=== PATIENT | female | born 1935 ===

== ENCOUNTER 2023-01-09 02:42 | Inpatient (IN) | payer BC ==
[~2023-01-09] VITALS: Ht 160 cm; Wt 55.1 kg
[2023-01-09] MEDS ORDERED: SODIUM CHLORIDE 0.9% 1,000 ML IV ONE (04:30)
[2023-01-09] MEDS ORDERED: ACETAMINOPHEN 325 MG TAB PO PRN (04:30)
[2023-01-09] MEDS ORDERED: MORPHINE SULFATE INJ 2 MG/ml SYRG IV PRN ×2 (04:30)
[2023-01-09] MEDS ORDERED: ONDANSETRON HCL 4 MG/2 ML VIAL IV PRN ×2 (04:30→15:15)
[2023-01-09] MEDS ORDERED: NITROGLYCERIN 0.4 MG SL TAB SL PRN (04:30)
[2023-01-09 05:00] VITALS: BP 140/73
[2023-01-09] MEDS ORDERED: ROPI0.5T4 PO (05:23)
[2023-01-09] MEDS ORDERED: SIMV20TA20 PO (05:23)
[2023-01-09] MEDS ORDERED: LEVO88TA4 PO (05:23)
[2023-01-09 08:30] VITALS: BP 135/57
[2023-01-09 09:08] LABS: Basophils # (auto) 0 10 ^3/uL (0-0.2); Basophils % (auto) 0.1 % (0.0-2.0); Eosinophils # (auto) 0 10 ^3/uL (0-0.8); Hematocrit 32.9 % (36.0-46.0); Lymphocytes % (auto) 11.1 % (10.0-50.0); Mean Corpuscular Hemoglobin 30.3 pg (28.0-32.0); Mean Corpuscular Hgb Conc. 33.5 g/dL (32.0-36.0); Mean Corpuscular Volume 90.5 fL (80.0-100.0); Monocytes # (auto) 0.8 10 ^3/uL (0-1.3); Monocytes % (auto) 8.3 % (0.0-12.0); Neutrophils # (auto) 7.2 10 ^3/uL (1.6-8.6); Neutrophils % (auto) 80.5 % (37.0-80.0); Red Blood Cells 3.64 10^6/uL (4.0-5.20); Red Cell Distribution Width 13.8 % (11.8-14.3)
[2023-01-09 09:25] LABS: Potassium 4.2 mmol/L (3.5-5.1)
[2023-01-09 09:33] LABS: Calcium 8.6 mg/dL (8.5-10.1)
[2023-01-09 09:48] LABS: INR 1.1 (0.9-1.15)
[2023-01-09] MEDS ORDERED: ceFAZolin 1GM/50ML 100 ML IV ONE (12:17)
[2023-01-09 13:00] VITALS: BP 135/54
[2023-01-09] MEDS ORDERED: EPINEPHrine HCL 1 MG/1 ML AMP ONE (13:49)
[2023-01-09] MEDS ORDERED: DexAMETHasone SOD PHOS 4 MG/1ML SDV INJ ONE (13:49)
[2023-01-09] MEDS ORDERED: BUPIVACAINE 0.25% INJ 50ML VIAL ONE (13:49)
[2023-01-09] MEDS ORDERED: PROPOFOL 10 MG/ML 20 ML IV ONE (13:51)
[2023-01-09] MEDS ORDERED: SODIUM CHLORIDE LOCK 10 ML ONE (14:37)
[2023-01-09] MEDS ORDERED: HYDROmorphone HCL 2 MG/ML VL/or syr IV PRN (15:15)
[2023-01-09] MEDS ORDERED: fentaNYL CITRATE 100 MCG/2 ML VL IV PRN (15:15)
[2023-01-09] MEDS ORDERED: ePHEDrine SULFATE 50 MG/ML AMP IV PRN (15:15)
[2023-01-09] MEDS ORDERED: NALOXONE HCL 0.4 MG/ML VIAL IV PRN (15:15)
[2023-01-09] MEDS ORDERED: MEPERIDINE HCL (25 MG/ML) 1ML VIAL IM ONE (15:15)
[2023-01-09] MEDS ORDERED: LABETALOL HCL 5 MG/ML 4ML SYRINGE IV PRN (15:15)
[2023-01-09] MEDS ORDERED: hydrALAZINE HCL 20 MG/ML VL IV PRN (15:15)
[2023-01-09] MEDS ORDERED: FLUMAZENIL 0.1 MG/ML INJ 10ML MDV IV PRN (15:15)
[2023-01-09 16:39] VITALS: BP 154/68
[2023-01-09 20:00] VITALS: BP 110/52
[2023-01-09] MEDS: HYDROcodone-ACET 5/325MG TAB PO PRN (20:52)
[2023-01-09] MEDS: ATORVASTATIN 20 MG TAB PO SCH (21:57)
[2023-01-09] MEDS: ceFAZolin 1GM/50ML 50 ML IV SCH (21:57)
[2023-01-09 22:00] VITALS: BP 110/52
[2023-01-10] VITALS (7 sets, daily range): BP systolic 97–127; BP diastolic 39–46
[2023-01-10] MEDS: LEVOTHYROXINE SODIUM 88 MCG TAB PO SCH (05:56)
[2023-01-10] MEDS: ceFAZolin 1GM/50ML 50 ML IV SCH ×3 (05:56→21:07)
[2023-01-10 06:41] LABS: Basophils # (auto) 0 10 ^3/uL (0-0.2); Eosinophils # (auto) 0 10 ^3/uL (0-0.8); Hematocrit 22.6 % (36.0-46.0); Hemoglobin 7.9 g/dL (12.2-16.2); Mean Corpuscular Hemoglobin 32.2 pg (28.0-32.0)
[2023-01-10 06:43] LABS: Lymphocytes # (auto) 0.8 10 ^3/uL (0.4-5.4); Mean Corpuscular Hgb Conc. 34.9 g/dL (32.0-36.0); Mean Corpuscular Volume 92.3 fL (80.0-100.0); Monocytes % (auto) 9.8 % (0.0-12.0); Neutrophils # (auto) 8.2 10 ^3/uL (1.6-8.6); Neutrophils % (auto) 82.2 % (37.0-80.0); Nucleated Red Blood Cells % 0.1 %; Red Blood Cells 2.45 10^6/uL (4.0-5.20); Red Cell Distribution Width 13.6 % (11.8-14.3)
[2023-01-10 06:54] LABS: BUN/Creatinine Ratio 22.8 (10.0-20.0); Calcium 8.1 mg/dL (8.5-10.1); Magnesium 2.1 mg/dL (1.6-2.6)
[2023-01-10] MEDS: ENOXAPARIN SOD 40 MG/0.4 ML SYRINGE SC SCH (09:31)
[2023-01-10] MEDS: FERROUS SULFATE 300 MG/5 ML ORAL LIQ PO SCH (17:41)
[2023-01-10] MEDS: HYDROcodone-ACET 5/325MG TAB PO PRN (17:42)
[2023-01-10] MEDS: MECLIZINE HCL 25 MG TAB PO SCH (21:07)
[2023-01-10] MEDS: ATORVASTATIN 20 MG TAB PO SCH (21:08)
[2023-01-11] MEDS: HYDROcodone-ACET 5/325MG TAB PO PRN (00:36)
[2023-01-11 05:00] VITALS: BP 114/50
[2023-01-11] MEDS: LEVOTHYROXINE SODIUM 88 MCG TAB PO SCH (06:01)
[2023-01-11] MEDS: ceFAZolin 1GM/50ML 50 ML IV SCH ×2 (06:01→13:29)
[2023-01-11 08:26] VITALS: BP 115/45
[2023-01-11] MEDS: FERROUS SULFATE 300 MG/5 ML ORAL LIQ PO SCH (08:28)
[2023-01-11 08:30] VITALS: BP 115/45
[2023-01-11] MEDS: MECLIZINE HCL 25 MG TAB PO SCH (10:20)
[2023-01-11] MEDS: ENOXAPARIN SOD 40 MG/0.4 ML SYRINGE SC SCH (10:20)
[2023-01-11 15:18] VITALS: BP 116/40
== END 2023-01-11 16:13 | DRG 482 ==
LOC: UNDOADMIN 02:50 → TELE-WESTW 02:50
PROVIDERS: ADMIT Hospitalist; ATTEND Hospitalist
PROC: 0QS604Z Reposition Right Upper Femur with Internal Fixation Device, Open Approach (ICD-10-PCS; principal; 2023-01-09 13:43)
DX: S72.141A Displaced intertrochanteric fracture of right femur, initial encounter for closed fracture (principal); E03.9 Hypothyroidism, unspecified; W01.0XXA Fall on same level from slipping, tripping and stumbling without subsequent striking against object, initial encounter; E78.5 Hyperlipidemia, unspecified; Z80.3 Family history of malignant neoplasm of breast; Z80.7 Family history of other malignant neoplasms of lymphoid, hematopoietic and related tissues; Y93.89 Activity, other specified; Y92.89 Other specified places as the place of occurrence of the external cause; Y99.8 Other external cause status
CPT/HCPCS: 36415; 70450; 71045; 73502; 76000; 80048; 83735; 85025; 85610; 86850; 86900; 86901; 93005; 93306; 97110; 97116; 97163; 97530; G0378; J0171; J0690; J1100; J2704; J3490

== ENCOUNTER 2023-01-14 20:22 | Inpatient (IN) | payer BC ==
[~2023-01-14] VITALS: Ht 162.6 cm; Wt 50.3 kg
[~2023-01-14 20:22] MED LIST: LEVO88TA4 PO; ROPI0.5T4 PO; SIMV20TA20 PO
[2023-01-14 21:52] LABS: Basophils # (auto) 0 10 ^3/uL (0-0.2); Basophils % (auto) 0.3 % (0.0-2.0); Eosinophils # (auto) 0.1 10 ^3/uL (0-0.8); Lymphocytes # (auto) 1.2 10 ^3/uL (0.4-5.4); Neutrophils # (auto) 4.8 10 ^3/uL (1.6-8.6); Nucleated Red Blood Cells % 0.1 %; Red Cell Distribution Width 13.5 % (11.8-14.3); White Blood Cell 6.8 10^3/uL (4.4-10.8)
[2023-01-14 21:55] LABS: Eosinophils % (auto) 1.7 % (0.0-7.0); Hematocrit 19.9 % (36.0-46.0); Lymphocytes % (auto) 17.5 % (10.0-50.0); Mean Corpuscular Hgb Conc. 34.2 g/dL (32.0-36.0); Mean Corpuscular Volume 90.6 fL (80.0-100.0); Monocytes # (auto) 0.7 10 ^3/uL (0-1.3); Monocytes % (auto) 9.8 % (0.0-12.0); Neutrophils % (auto) 70.7 % (37.0-80.0); Red Blood Cells 2.19 10^6/uL (4.0-5.20)
[2023-01-14 22:02] LABS: Hemoglobin 6.8 g/dL (12.2-16.2)
[2023-01-14 22:06] LABS: Albumin 2.5 g/dL (3.4-5.0); Calcium 7.7 mg/dL (8.5-10.1); Potassium 3.8 mmol/L (3.5-5.1)
[2023-01-14 22:11] LABS: BUN/Creatinine Ratio 22.6 (10.0-20.0); Bilirubin, Total 1.4 mg/dL (0.2-1.0); Total Protein 5.9 g/dL (6.4-8.2)
[2023-01-14 22:54] VITALS: PULSE 78; RESP 16; O2SAT 97
[2023-01-14] MEDS ORDERED: ONDANSETRON HCL 4 MG/2 ML VIAL IV PRN (23:15)
[2023-01-14] MEDS: MORPHINE SULFATE 4 MG/ML SYR/VIAL IV PRN (23:29)
[2023-01-15] VITALS (12 sets, daily range): BP systolic 124–156; BP diastolic 51–75; PULSE 64–85; RESP 17–28; TEMP 97.7–98.5; O2SAT 95–97
[2023-01-15] MEDS ORDERED: ONDANSETRON HCL 4 MG/2 ML VIAL IV PRN (05:15)
[2023-01-15 07:14] LABS: % Iron Saturation 37.4 % (15-50)
[2023-01-15] MEDS: LEVOTHYROXINE SODIUM 88 MCG TAB PO SCH (07:48)
[2023-01-15] MEDS ORDERED: PANTOPRAZOLE 40 MG TAB PO SCH (10:00)
[2023-01-15] MEDS: MORPHINE SULFATE 4 MG/ML SYR/VIAL IV PRN (10:15)
[2023-01-15 13:26] LABS: Hematocrit 30.7 % (36.0-46.0); Hemoglobin 10.3 g/dL (12.2-16.2)
[2023-01-15] MEDS: ACETAMINOPHEN 325 MG TAB PO PRN (21:59)
[2023-01-15] MEDS: ATORVASTATIN 20 MG TAB PO SCH (21:59)
[2023-01-16 05:00] VITALS: BP 147/59; PULSE 64; RESP 17; TEMP 97.9; O2SAT 98
[2023-01-16] MEDS: LEVOTHYROXINE SODIUM 88 MCG TAB PO SCH (06:27)
[2023-01-16 06:50] LABS: Basophils # (auto) 0 10 ^3/uL (0-0.2); Basophils % (auto) 0.3 % (0.0-2.0); Eosinophils # (auto) 0.3 10 ^3/uL (0-0.8); Eosinophils % (auto) 3.4 % (0.0-7.0); Hematocrit 30.7 % (36.0-46.0); Hemoglobin 10.2 g/dL (12.2-16.2); Lymphocytes # (auto) 1.1 10 ^3/uL (0.4-5.4); Lymphocytes % (auto) 14.4 % (10.0-50.0); Mean Corpuscular Hgb Conc. 33.4 g/dL (32.0-36.0); Mean Corpuscular Volume 86.7 fL (80.0-100.0); Monocytes # (auto) 0.7 10 ^3/uL (0-1.3); Monocytes % (auto) 8.9 % (0.0-12.0); Neutrophils # (auto) 5.5 10 ^3/uL (1.6-8.6); Nucleated Red Blood Cells % 0.1 %; Red Blood Cells 3.54 10^6/uL (4.0-5.20); Red Cell Distribution Width 16.3 % (11.8-14.3); White Blood Cell 7.5 10^3/uL (4.4-10.8)
[2023-01-16 07:11] LABS: BUN/Creatinine Ratio 24.1 (10.0-20.0); Calcium 8.1 mg/dL (8.5-10.1); Potassium 4.1 mmol/L (3.5-5.1)
[2023-01-16 09:00] VITALS: BP 146/69; PULSE 75; RESP 17; TEMP 98.2; O2SAT 96
[2023-01-16 13:00] VITALS: BP 137/60; PULSE 67; RESP 17; TEMP 97.8; O2SAT 99
[2023-01-16 16:55] VITALS: BP 136/63; PULSE 72; RESP 17; TEMP 97.8; O2SAT 95
[2023-01-16] MEDS: DOCUSATE SOD 100 MG CAP PO SCH (21:50)
[2023-01-16] MEDS: ATORVASTATIN 20 MG TAB PO SCH (21:51)
[2023-01-16] MEDS: ACETAMINOPHEN 325 MG TAB PO PRN (21:53)
[2023-01-16 22:00] VITALS: BP 130/61; PULSE 64; RESP 17; TEMP 97.6; O2SAT 100
[2023-01-17 05:00] VITALS: BP 137/65; PULSE 67; RESP 17; TEMP 97.6; O2SAT 96
[2023-01-17] MEDS: LEVOTHYROXINE SODIUM 88 MCG TAB PO SCH (06:11)
[2023-01-17 08:00] VITALS: BP 155/65; PULSE 67; PULSE 70; RESP 16; RESP 17; TEMP 97.5; O2SAT 96
[2023-01-17] MEDS: DOCUSATE SOD 100 MG CAP PO SCH ×2 (10:39→21:29)
[2023-01-17 11:27] LABS: Hematocrit 32.2 % (36.0-46.0); Hemoglobin 10.6 g/dL (12.2-16.2); Mean Corpuscular Hemoglobin 28.5 pg (28.0-32.0); Mean Corpuscular Hgb Conc. 32.9 g/dL (32.0-36.0); Mean Corpuscular Volume 86.6 fL (80.0-100.0); Red Blood Cells 3.72 10^6/uL (4.0-5.20); Red Cell Distribution Width 16.6 % (11.8-14.3); White Blood Cell 8.1 10^3/uL (4.4-10.8)
[2023-01-17 11:34] LABS: Basophils % (manual) 0 (0.0-2.0); Blast Cells 0; Metamyelocytes % 0; Myelocytes % 0; Promyelocytes % 0; Reactive Lymphocytes 0
[2023-01-17 12:00] VITALS: BP 152/58; PULSE 72; RESP 14; TEMP 98.1; O2SAT 96
[2023-01-17 12:21] LABS: Band Neutrophils % (manual) 1; Eosinophils % (manual) 3 (0-7); Lymphocytes % (manual) 18 (10.0-50.0); Monocytes % (manual) 4 (0-12)
[2023-01-17 16:00] VITALS: BP 133/55; PULSE 73; RESP 14; TEMP 97.8; O2SAT 96
[2023-01-17] MEDS ORDERED: POLYETHYLENE GLYCOL 17 GM PWDR PO ONE (17:45)
[2023-01-17 20:00] VITALS: RESP 19
[2023-01-17] MEDS: ATORVASTATIN 20 MG TAB PO SCH (21:29)
[2023-01-17] MEDS: LACTULOSE 20Gm/30ML SOLN PO SCH (21:29)
[2023-01-17] MEDS: ACETAMINOPHEN 325 MG TAB PO PRN (21:29)
[2023-01-17 22:00] VITALS: BP 159/70; PULSE 72; RESP 17; TEMP 97.8; O2SAT 96
[2023-01-18] VITALS (7 sets, daily range): BP systolic 125–157; BP diastolic 60–67; PULSE 64–87; RESP 14–18; TEMP 97.4–97.6; O2SAT 96–100
[2023-01-18] MEDS: LEVOTHYROXINE SODIUM 88 MCG TAB PO SCH (06:01)
[2023-01-18] MEDS: DOCUSATE SOD 100 MG CAP PO SCH ×2 (10:26→21:22)
[2023-01-18] MEDS: LACTULOSE 20Gm/30ML SOLN PO SCH ×3 (10:26→21:31)
[2023-01-18] MEDS: ENOXAPARIN SOD 100 MG/1 ML SYRINGE SC SCH ×2 (14:27→21:22)
[2023-01-18] MEDS: ATORVASTATIN 20 MG TAB PO SCH (21:22)
[2023-01-19] VITALS (7 sets, daily range): BP systolic 125–142; BP diastolic 59–67; PULSE 55–82; RESP 16–18; TEMP 36.7; O2SAT 93–98
[2023-01-19] MEDS: LEVOTHYROXINE SODIUM 88 MCG TAB PO SCH (06:03)
[2023-01-19] MEDS: ACETAMINOPHEN 325 MG TAB PO PRN (09:00)
[2023-01-19] MEDS: LACTULOSE 20Gm/30ML SOLN PO SCH ×2 (10:00→23:20)
[2023-01-19] MEDS: ENOXAPARIN SOD 100 MG/1 ML SYRINGE SC SCH (10:04)
[2023-01-19] MEDS: DOCUSATE SOD 100 MG CAP PO SCH ×2 (10:04→23:21)
[2023-01-19 23:17] LABS: Basophils # (auto) 0.1 10 ^3/uL (0-0.2); Eosinophils # (auto) 0.2 10 ^3/uL (0-0.8); Eosinophils % (auto) 2.1 % (0.0-7.0); Hemoglobin 10.8 g/dL (12.2-16.2); Neutrophils # (auto) 5.8 10 ^3/uL (1.6-8.6); White Blood Cell 8.4 10^3/uL (4.4-10.8)
[2023-01-19 23:19] LABS: Basophils % (auto) 0.9 % (0.0-2.0); Hematocrit 31.9 % (36.0-46.0); Lymphocytes # (auto) 1.6 10 ^3/uL (0.4-5.4); Lymphocytes % (auto) 19.3 % (10.0-50.0); Mean Corpuscular Hemoglobin 29.1 pg (28.0-32.0); Mean Corpuscular Hgb Conc. 33.8 g/dL (32.0-36.0); Monocytes # (auto) 0.8 10 ^3/uL (0-1.3); Neutrophils % (auto) 68.7 % (37.0-80.0); Red Blood Cells 3.71 10^6/uL (4.0-5.20); Red Cell Distribution Width 16.8 % (11.8-14.3)
[2023-01-19] MEDS: HYDROcodone-ACET 5/325MG TAB PO PRN (23:23)
[2023-01-19] MEDS: ATORVASTATIN 20 MG TAB PO SCH (23:23)
[2023-01-19] MEDS: ENOXAPARIN SOD 60 MG/0.6 ML SYRINGE SC SCH (23:42)
[2023-01-20 05:00] VITALS: BP_SYST 148; BP_SYST 149; BP_DIAS 59; BP_DIAS 95; PULSE 62; PULSE 67; RESP 17; RESP 19; TEMP 97.4; TEMP 97.9; O2SAT 95
[2023-01-20 06:22] LABS: Hematocrit 32.3 % (36.0-46.0); Hemoglobin 10.8 g/dL (12.2-16.2); Mean Corpuscular Hemoglobin 29.2 pg (28.0-32.0); Mean Corpuscular Hgb Conc. 33.5 g/dL (32.0-36.0); Red Blood Cells 3.71 10^6/uL (4.0-5.20); Red Cell Distribution Width 16.7 % (11.8-14.3); White Blood Cell 8.4 10^3/uL (4.4-10.8)
[2023-01-20 06:28] LABS: Basophils % (manual) 0 (0.0-2.0); Blast Cells 0; Eosinophils % (manual) 0 (0-7); Promyelocytes % 0; Reactive Lymphocytes 0
[2023-01-20 06:32] LABS: Potassium 4.6 mmol/L (3.5-5.1)
[2023-01-20 06:38] LABS: BUN/Creatinine Ratio 23.4 (10.0-20.0); Calcium 8.5 mg/dL (8.5-10.1)
[2023-01-20] MEDS: LEVOTHYROXINE SODIUM 88 MCG TAB PO SCH (06:56)
[2023-01-20 07:35] LABS: Band Neutrophils % (manual) 1; Lymphocytes % (manual) 13 (10.0-50.0); Metamyelocytes % 1; Monocytes % (manual) 5 (0-12); Myelocytes % 4
[2023-01-20 09:00] VITALS: BP 122/61; PULSE 65; RESP 18; TEMP 97.5; O2SAT 100
[2023-01-20] MEDS: DOCUSATE SOD 100 MG CAP PO SCH ×2 (09:41→21:40)
[2023-01-20] MEDS: ENOXAPARIN SOD 60 MG/0.6 ML SYRINGE SC SCH (09:41)
[2023-01-20] MEDS: LACTULOSE 20Gm/30ML SOLN PO SCH ×2 (09:45→21:41)
[2023-01-20 13:00] VITALS: BP 123/59; PULSE 77; RESP 18; TEMP 97.3; O2SAT 97
[2023-01-20 17:00] VITALS: BP 116/64; PULSE 78; RESP 16; TEMP 97.7; O2SAT 96
[2023-01-20] MEDS: HYDROcodone-ACET 5/325MG TAB PO PRN (21:40)
[2023-01-20] MEDS: ATORVASTATIN 20 MG TAB PO SCH (21:41)
[2023-01-20] MEDS: APIXABAN 5 MG TAB PO SCH (21:41)
[2023-01-20 22:00] VITALS: BP 143/71; PULSE 74; RESP 16; TEMP 97.8; O2SAT 96
[2023-01-21] MEDS: HYDROcodone-ACET 5/325MG TAB PO PRN ×3 (04:28→22:56)
[2023-01-21 05:00] VITALS: BP 127/63; PULSE 71; RESP 16; TEMP 97.9; O2SAT 95
[2023-01-21] MEDS: LEVOTHYROXINE SODIUM 88 MCG TAB PO SCH (06:06)
[2023-01-21 08:10] VITALS: BP 132/52; PULSE 72; RESP 16; TEMP 97.6; O2SAT 99
[2023-01-21] MEDS: APIXABAN 5 MG TAB PO SCH ×2 (09:35→21:32)
[2023-01-21] MEDS: LACTULOSE 20Gm/30ML SOLN PO SCH ×2 (09:35→21:32)
[2023-01-21] MEDS: DOCUSATE SOD 100 MG CAP PO SCH ×2 (09:35→21:32)
[2023-01-21 09:42] VITALS: BP 132/52; PULSE 72; RESP 16; TEMP 97.6; O2SAT 99
[2023-01-21 14:48] VITALS: BP 148/59; PULSE 69; RESP 16; TEMP 97.6; O2SAT 99
[2023-01-21 18:00] VITALS: BP 133/58; PULSE 76; RESP 16; TEMP 97.4; O2SAT 95
[2023-01-21] MEDS: ATORVASTATIN 20 MG TAB PO SCH (21:32)
[2023-01-21 22:00] VITALS: BP 133/62; PULSE 74; RESP 17; TEMP 97.8; O2SAT 100
[2023-01-22 05:00] VITALS: BP 126/58; PULSE 75; RESP 16; TEMP 97.5; O2SAT 96
[2023-01-22 06:09] LABS: Calcium 8.2 mg/dL (8.5-10.1)
[2023-01-22 06:16] LABS: Basophils # (auto) 0.1 10 ^3/uL (0-0.2); Basophils % (auto) 0.7 % (0.0-2.0); Eosinophils # (auto) 0.2 10 ^3/uL (0-0.8); Eosinophils % (auto) 1.9 % (0.0-7.0); Hemoglobin 10.5 g/dL (12.2-16.2); Lymphocytes # (auto) 1.3 10 ^3/uL (0.4-5.4); Lymphocytes % (auto) 15.4 % (10.0-50.0); Mean Corpuscular Hgb Conc. 33.9 g/dL (32.0-36.0); Mean Corpuscular Volume 88.4 fL (80.0-100.0); Monocytes # (auto) 0.6 10 ^3/uL (0-1.3); Monocytes % (auto) 7.1 % (0.0-12.0); Neutrophils # (auto) 6.4 10 ^3/uL (1.6-8.6); Neutrophils % (auto) 74.9 % (37.0-80.0); Red Blood Cells 3.51 10^6/uL (4.0-5.20); Red Cell Distribution Width 16.8 % (11.8-14.3); White Blood Cell 8.6 10^3/uL (4.4-10.8)
[2023-01-22] MEDS: LEVOTHYROXINE SODIUM 88 MCG TAB PO SCH (06:27)
[2023-01-22 08:15] VITALS: O2SAT 99
[2023-01-22 09:00] VITALS: BP 124/61; PULSE 74; RESP 17; TEMP 98; O2SAT 95
[2023-01-22] MEDS: HYDROcodone-ACET 5/325MG TAB PO PRN ×2 (09:41→23:56)
[2023-01-22] MEDS: APIXABAN 5 MG TAB PO SCH ×2 (09:41→21:27)
[2023-01-22] MEDS: LACTULOSE 20Gm/30ML SOLN PO SCH ×3 (09:42→21:28)
[2023-01-22] MEDS: DOCUSATE SOD 100 MG CAP PO SCH ×3 (09:42→21:27)
[2023-01-22 13:00] VITALS: BP 113/52; PULSE 85; RESP 18; TEMP 97.5; O2SAT 98
[2023-01-22 17:00] VITALS: BP 142/65; PULSE 85; RESP 20; TEMP 97.8; O2SAT 96
[2023-01-22] MEDS: ATORVASTATIN 20 MG TAB PO SCH (21:27)
== END 2023-01-23 | DRG 812 ==
LOC: EDBD 20:22 → ER 20:22 → OVERFLOW 01-15 05:18 → EAST 01-15 16:38
PROVIDERS: ADMIT Internal Medicine; ATTEND Internal Medicine
PROC: 30233N1 Transfusion of Nonautologous Red Blood Cells into Peripheral Vein, Percutaneous Approach (ICD-10-PCS; principal; 2023-01-15)
DX: D62 Acute posthemorrhagic anemia (principal); I82.401 Acute embolism and thrombosis of unspecified deep veins of right lower extremity; R42 Dizziness and giddiness; E78.5 Hyperlipidemia, unspecified; E07.9 Disorder of thyroid, unspecified; K59.00 Constipation, unspecified; Z96.641 Presence of right artificial hip joint; Z20.822 Contact with and (suspected) exposure to COVID-19; E03.9 Hypothyroidism, unspecified; I10 Essential (primary) hypertension; Z80.3 Family history of malignant neoplasm of breast; Z80.7 Family history of other malignant neoplasms of lymphoid, hematopoietic and related tissues; Z86.718 Personal history of other venous thrombosis and embolism
CPT/HCPCS: 36415; 73700; 74018; 80048; 80053; 82270; 83540; 83550; 85007; 85014; 85018; 85025; 85027; 86850; 86900; 86901; 86920; 87081; 87426; 93970; 97110; 97116; 97163; 97530; 99291; G0378; J2405